=== PATIENT | female | born 1930 | race Caucasian/White ===

== ENCOUNTER 2018-12-19 12:53 | Inpatient (IN) | payer BC, OTHER ==
--- NOTE | 2018-12-19 13:34 | PDOC ---
History of Present Illness - General Chief Complaint: Altered Mental Status Stated Complaint: Altered Mental Status Time Seen by Provider: 12/19/18 13:34 Past History - Past Medical History Allergies/Adverse Reactions: Allergies Allergy/AdvReac Type Severity Reaction Status Date / Time No Known Allergies Allergy Verified 05/23/11 08:24 Home Medications: Ambulatory Orders Aspirin [Aspirin EC] 81 mg PO DAILY #0 tab.chew 05/25/11 Atorvastatin Ca [Lipitor] 20 mg PO HS #0 tablet 05/25/11 Clopidogrel Bisulfate [Plavix -] 75 mg PO DAILY #0 tablet 05/25/11 Valsartan [Diovan] 320 mg PO DAILY #0 tablet 05/25/11 Anemia: No Asthma: No Cancer: No Cardiac Disorders: No CVA: No COPD: No CHF: No Dementia: No Diabetes: No GI Disorders: No Disorders: No HTN: Yes Hypercholesterolemia: No Liver Disease: No Seizures: No Thyroid Disease: No - Surgical History Abdominal Surgery: No Appendectomy: Yes Cardiac Surgery: Yes (rui) Cholecystectomy: No Lung Surgery: No Neurologic Surgery: No Orthopedic Surgery: Yes - Psycho Social/Smoking Cessation Hx Smoking History: Never smoked Have you smoked in the past 12 months: No Information on smoking cessation initiated: No Hx Alcohol Use: No Drug/Substance Use Hx: No Substance Use Type: None Hx Substance Use Treatment: No *Physical Exam - Vital Signs Last Vital Signs Temp Pulse Resp BP Pulse Ox 99.4 F 62 18 180/81 H 100 12/19/18 13:28 12/19/18 12:57 12/19/18 12:57 12/19/18 12:57 12/19/18 12:57 ED Treatment Course - LABORATORY CBC & Chemistry Diagram: 12/19/18 13:40 12/19/18 13:40 Medical Decision Making - Medical Decision Making HPI: 88yo F with PMH of HTN, HLD presenting with chills, cough, and lethargy. Patient 's son is at the bedside providing collateral history. He states she saw her primary care physician about one week ago and was started on a new medication last week and took the medication for about two days. Shortly after starting the medication (olmesartan), she started feeling poorly. The patient saw her primary care physician again on Saturday. She has had poor po intake since Saturday and has been sleeping more than usual. Her son stopped the new medication. Patient has had cough productive of unknown color phlegm. No urinary symptoms. Denies sick contacts or recent travel. Per the son, patient appears to be more confused compared to her baseline. Denies fever, but reports chills. PCP: Dr. Brian Gtz ROS: Constitutional: no fever, +chills HEENT: no throat pain, no dysphagia Cardiovascular: no chest pain, no palpitations Respiratory: +cough, no shortness of breath Gastrointestinal: no abdominal pain, +constipation Genitourinary: no dysuria, no hematuria Musculoskeletal: no myalgia, no arthralgia Skin: no rash, no itching Neurologic: no headache, +weakness PE: General: Awake, alert, and oriented x 2 (cannot name month/year), in no acute distress Head: No signs of trauma Eyes: EOMI, sclera anicteric ENT: Moist mucus membranes Neck: Normal ROM, supple Lungs: Lungs clear, Normal breath sounds Cardio: Regular rhythm, S1 and S2 present Abdomen: Soft, nontender Extremities: Normal range of motion, Distal pulses present SKIN: Warm, Dry, normal turgor Neurologic: Cranial nerves II through XII intact. Normal speech, sensation, strength. Deferred gait exam. ED Course/MDM: DDX including but not limited to hypovolemia, UTI, PNA, bronchitis, ACS, medication adverse effect Labs, EKG, CXR Vitals significant for hypertension; patient did not take her morning BP meds EKG: rate 64, QTc 468, NSR, new RBBB/ twi still present in V1, new twi in V2 when compared to previous EKG 05/14/11 12/19/18 13:34 Call to patient's [facility]: 12/05 Olmesartan (Benicar) 40-25 daily metoprolol ER 25mg daily norvasc 5mg daily 08/27 Losartan-HCTZ (Hizar) 100-25mg daily Ordered home dose of Norvasc 12/19/18 14:04 CBC WBC 5.7 K/mm3 (4.0-10.0) 12/19/18 13:40 RBC 4.25 M/mm3 (3.60-5.2) 12/19/18 13:40 Hgb 12.2 GM/dL (10.7-15.3) 12/19/18 13:40 Hct 36.6 % (32.4-45.2) 12/19/18 13:40 MCV 86.0 fl (80-96) 12/19/18 13:40 MCH 28.6 pg (25.7-33.7) 12/19/18 13:40 MCHC 33.2 g/dl (32.0-36.0) 12/19/18 13:40 RDW 15.6 % (11.6-15.6) D 12/19/18 13:40 Plt Count 145 K/MM3 (134-434) D 12/19/18 13:40 MPV 11.1 fl (7.5-11.1) 12/19/18 13:40 Absolute Neuts (auto) 3.3 K/mm3 (1.5-8.0) 12/19/18 13:40 Neutrophils % 57.3 % (42.8-82.8) 12/19/18 13:40 Lymphocytes % 34.5 % (8-40) 12/19/18 13:40 Monocytes % 7.4 % (3.8-10.2) 12/19/18 13:40 Eosinophils % 0.3 % (0-4.5) D 12/19/18 13:40 Basophils % 0.5 % (0-2.0) 12/19/18 13:40 Nucleated RBC % 0 % (0-0) 12/19/18 13:40 No leukocytosis CMP Sodium 141 mmol/L (136-145) 12/19/18 13:40 Potassium 3.1 mmol/L (3.5-5.1) L 12/19/18 13:40 Chloride 105 mmol/L (98-107) 12/19/18 13:40 Carbon Dioxide 28 mmol/L (21-32) 12/19/18 13:40 Anion Gap 9 MMOL/L (8-16) 12/19/18 13:40 BUN 14.1 mg/dL (7-18) 12/19/18 13:40 Creatinine 0.9 mg/dL (0.55-1.3) 12/19/18 13:40 Est GFR (CKD-EPI)AfAm 66.63 12/19/18 13:40 Est GFR (CKD-EPI)NonAf 57.49 12/19/18 13:40 Random Glucose 121 mg/dL (74-106) H 12/19/18 13:40 Lactic Acid 1.9 mmol/L (0.4-2.0) 12/19/18 13:34 Calcium 8.9 mg/dL (8.5-10.1) 12/19/18 13:40 Total Bilirubin 0.8 mg/dL (0.2-1) 12/19/18 13:40 AST 22 U/L (15-37) 12/19/18 13:40 ALT 24 U/L (13-61) 12/19/18 13:40 Alkaline Phosphatase 134 U/L (45-117) H 12/19/18 13:40 Creatine Kinase 30 U/L (26-192) 12/19/18 13:40 CK-MB (CK-2) < 1.0 ng/mL (0.5-3.6) 12/19/18 13:40 Troponin I < 0.02 ng/ml (0.00-0.05) 12/19/18 13:40 Total Protein 7.5 g/dl (6.4-8.2) 12/19/18 13:40 Albumin 3.7 g/dl (3.4-5.0) 12/19/18 13:40 K is low, will replete normal Cr Lactate normal No transaminitis Tpn undetectable 12/19/18 15:30 CXR as read by radiology: "Single view AP portable chest Comparison 05/14/2011 Evaluation for sepsis Trachea midline with upper normal heart size. No mediastinal widening Patchy infiltrate suspected subpleural region lingula, findings not seen prior imaging 2011. No edema or congestive change in the lungs , no pleural effusion. No adenopathy or cavity. Impression: Possible patchy infiltrate lingula segment, clinical correlation. " 12/19/18 15:34 Azithromycin, Ceftriaxone ordered CURB-65 is 2 due to age and confusion Plan for admission 12/19/18 16:[address] Duran, 12/19/18 16:[address] Duran who accepted patient for admission under herself 12/19/18 16:59 Patient's son, Reynold, can be reached at [phone] 12/19/18 17:05 Discharge - Discharge Information Problems reviewed: Yes Clinical Impression/Diagnosis: Pneumonia Qualifiers: Pneumonia type: due to unspecified organism Laterality: unspecified laterality Lung location: unspecified part of lung Qualified Code(s): J18.9 - Pneumonia, unspecified organism Condition: Guarded - Admission Yes - Follow up/Referral Referrals: Brian Gtz MD [Primary Care Provider] - - Patient Discharge Instructions - Post Discharge Activity
[2018-12-19 13:58] LABS: BASO % 0.5 % (0-2.0); EOS % 0.3 % (0-4.5); HEMATOCRIT 36.6 % (32.4-45.2); HEMOGLOBIN 12.2 GM/dL (10.7-15.3); LYMPH % 34.5 % (8-40); MCH 28.6 pg (25.7-33.7); MCHC 33.2 g/dl (32.0-36.0); MEAN PLT VOLUME 11.1 fl (7.5-11.1); MONO % 7.4 % (3.8-10.2); NEUT % 57.3 % (42.8-82.8); PLATELET COUNT 145 K/MM3 (134-434); RBC 4.25 M/mm3 (3.60-5.2); RDW 15.6 % (11.6-15.6); WHITE BLOOD COUNT 5.7 K/mm3 (4.0-10.0)
[2018-12-19 14:02] LABS: VENOUS PC02 39.5 mmHg (38-52); VENOUS PH 7.47 (7.31-7.41); VENOUS PO2 < 49 mmHg (28-48)
[2018-12-19] MEDS ORDERED: amLODIPine BESYLATE 5 MG TABLET (FP) PO ONE (14:09)
--- NOTE | 2018-12-19 14:14 | PDOC ---
Attending Attestation - Resident Resident Name: AdrianneLacey - ED Attending Attestation I have performed the following: I have examined & evaluated the patient, The case was reviewed & discussed with the resident, I agree w/resident's findings & plan, Exceptions are as noted - HPI HPI: 12/19/18 16:08 Ms. Alvarez is an 88 yo F with PMH of HTN, HLD presenting to the ER with her son due to chills, cough, and lethargy. Pt has had no fevers or chill but has had poor po intake for the past 4 days (she is eating a few slices of toast each day) No diarrhea No dysuria Pt does have a cough with yellow sputum No rash No recent travel No ill contacts NO headache Patient appears to be more confused compared to her baseline. PCP: Dr. Brian Gtz - Physicial Exam PE: 12/19/18 14:14 GENERAL: The patient is in no acute distress. ENT: Ears normal, nares patent, oropharynx clear without exudates. Moist mucous membranes. NECK: Normal range of motion, supple LUNGS: Breath sounds equal, clear to auscultation bilaterally. No wheezes, and no crackles. HEART:Regular rate and rhythm, normal S1 and S2 without murmur, rub or gallop. ABDOMEN: Soft, nontender, normoactive bowel sounds. EXTREMITIES: Normal range of motion, no edema. NEUROLOGICAL: Cranial nerves II through XII grossly intact. Normal speech. No focal neurological deficits. SKIN: Warm, Dry, normal turgor, no rashes or lesions noted. - Medical Decision Making 12/19/18 14:14 EKG : NSR rate of 64 bpm , axis nml, intervals abn - pr: 168ms, QRS:134ms, QTc: 468ms, no st elevation or depression 12/19/18 16:16 88 yo F with a complaint of weakness and altered mentation No fevers (+) cough 12/19/18 16:16 Laboratory Tests 12/19/18 12/19/18 12/19/18 13:40 13:40 13:40 WBC 5.7 Hgb 12.2 Hct 36.6 Plt Count 145 D INR BUN 14.1 Creatinine 0.9 Alkaline Phosphatase 134 H Creatine Kinase 30 CK-MB (CK-2) < 1.0 Troponin I < 0.02 Urine Blood Urine Nitrite Ur Leukocyte Esterase 10/18/19 10/18/19 13:40 14:13 WBC Hgb Hct Plt Count INR 1.10 H BUN Creatinine Alkaline Phosphatase Creatine Kinase CK-MB (CK-2) Troponin I Urine Blood Negative Urine Nitrite Negative Ur Leukocyte Esterase 2+ H CXR with lingular infiltrate Will plan to admit Clinical impression: pneumonia, initial presentation Hypokalemia, initial presentation 12/19/18 16:17
[2018-12-19 14:26] LABS: INR 1.1 (0.83-1.09)
[2018-12-19 14:29] LABS: ACTIVATED PTT 25.1 SECONDS (25.2-36.5)
[2018-12-19] MEDS ORDERED: amLODIPine BESYLATE 5 MG TABLET (FP) ONE (14:33)
[2018-12-19 14:35] LABS: PH,URINE 6.5 (5.0-8.0); URINE APPEARANCE CLOUDY; URINE BILIRUBIN NEGATIVE (NEGATIVE); URINE COLOR YELLOW; URINE GLUCOSE (UA) NEGATIVE (NEGATIVE); URINE KETONE NEGATIVE (NEGATIVE); URINE LEUK ESTERASE 2+ (NEGATIVE); URINE NITRITE NEGATIVE (NEGATIVE); URINE PROTEIN NEGATIVE (NEGATIVE); URINE UROBILINOGEN 0.2 mg/dL (0.2-1.0)
[2018-12-19 14:41] LABS: ALBUMIN 3.7 g/dl (3.4-5.0); ALK PHOS 134 U/L (45-117); ANION GAP 9 MMOL/L (8-16); BILIRUBIN,TOTAL 0.8 mg/dL (0.2-1); BLOOD UREA NITROGEN 14.1 mg/dL (7-18); CALCIUM 8.9 mg/dL (8.5-10.1); CHLORIDE 105 mmol/L (98-107); CO2 28 mmol/L (21-32); CREATININE 0.9 mg/dL (0.55-1.3); GLUCOSE,RANDOM 121 mg/dL (74-106); POTASSIUM 3.1 mmol/L (3.5-5.1); SGOT/AST 22 U/L (15-37); SGPT/ALT 24 U/L (13-61); SODIUM 141 mmol/L (136-145); TOT PROT 7.5 g/dl (6.4-8.2)
[2018-12-19] MEDS ORDERED: POTASSIUM CHLORIDE TABS 20 MEQ TABLET.ER (FP) PO ONE (15:33)
[2018-12-19] MEDS ORDERED: AZITHROMYCIN IVPB 500 MG in DEXTROSE 5%-WATER - 250 ML IVPB ONE (15:54)
[2018-12-19] MEDS ORDERED: CEFTRIAXONE 1,000 MG in DEXTROSE 5%-WATER - 50 ML IVPB ONE (15:54)
[2018-12-19] MEDS ORDERED: POTASSIUM CHLORIDE ORAL LIQUID 20 MEQ/15 ML ONE (16:12)
[2018-12-19] MEDS ORDERED: AZITHROMYCIN IVPB 500 MG/250 ML BAG IVPB ONE (16:12)
[2018-12-19] MEDS ORDERED: CEFTRIAXONE 1 GM/50 ML BAG ONE (16:18)
--- NOTE | 2018-12-19 22:16 | EKG ---
Test Reason : Blood Pressure : / mmHG Vent. Rate : 064 BPM Atrial Rate : 064 BPM P-R Int : 168 ms QRS Dur : 134 ms QT Int : 454 ms P-R-T Axes : 049 000 036 degrees QTc Int : 468 ms POOR DATA QUALITY, INTERPRETATION MAY BE ADVERSELY AFFECTED NORMAL SINUS RHYTHM RIGHT BUNDLE BRANCH BLOCK LATERAL INFARCT (CITED ON OR BEFORE 14-MAY-2011) ABNORMAL ECG WHEN COMPARED WITH ECG OF 14-MAY-2011 10:21, RIGHT BUNDLE BRANCH BLOCK IS NOW PRESENT Confirmed by MD NINA, MERLIN ([id number]) on 12/19/2018 10:16:20 PM Referred By: Confirmed By:MERLIN WOOD MD
[2018-12-19 22:27] VITALS: BMI 24.5
[2018-12-20] MEDS ORDERED: ALBUTEROL SO4 2.5/IPRATROPIUM 0.5 INH SOL 3 ML VIAL.NEB. NEB PRN (02:28)
[2018-12-20 08:38] LABS: EOS % 1.9 % (0-4.5); HEMATOCRIT 36.1 % (32.4-45.2); HEMOGLOBIN 11.9 GM/dL (10.7-15.3); LYMPH % 42.9 % (8-40); MCH 28.4 pg (25.7-33.7); MEAN CELL VOLUME 86.1 fl (80-96); MEAN PLT VOLUME 11.1 fl (7.5-11.1); MONO % 9.9 % (3.8-10.2); NEUT % 44.3 % (42.8-82.8); PLATELET COUNT 137 K/MM3 (134-434); RDW 15.8 % (11.6-15.6); WHITE BLOOD COUNT 4.5 K/mm3 (4.0-10.0)
[2018-12-20 09:11] LABS: ALBUMIN 3.4 g/dl (3.4-5.0); ALK PHOS 130 U/L (45-117); ANION GAP 9 MMOL/L (8-16); BILIRUBIN,TOTAL 0.6 mg/dL (0.2-1); BLOOD UREA NITROGEN 10.1 mg/dL (7-18); CHLORIDE 105 mmol/L (98-107); CO2 29 mmol/L (21-32); CREATININE 0.7 mg/dL (0.55-1.3); GLUCOSE,RANDOM 98 mg/dL (74-106); POTASSIUM 3.3 mmol/L (3.5-5.1); SGOT/AST 20 U/L (15-37); SGPT/ALT 24 U/L (13-61); SODIUM 142 mmol/L (136-145); TOT PROT 6.9 g/dl (6.4-8.2)
[2018-12-20] MEDS ORDERED: DEXTROSE 5%-WATER - 50 ML IVPB ONE (09:45)
[2018-12-20] MEDS ORDERED: cefTRIAXone SODIUM 1 GM VIAL ONE (09:45)
[2018-12-20] MEDS: HEPARIN NA (PORCINE) 5,000 UNITS/ML 1ML VIAL SQ SCH ×2 (10:57→22:20)
[2018-12-20] MEDS: AZITHROMYCIN IVPB 250 MG in DEXTROSE 5%-WATER - 250 ML IVPB SCH (10:57)
[2018-12-20] MEDS: CEFTRIAXONE 1 GM in DEXTROSE 5%-WATER - 50 ML IVPB SCH (10:57)
--- NOTE | 2018-12-20 12:56 | PN ---
Progress Note (short form) - Note Progress Note: PULMONARY CONSULTATION DICTATED 12/20/18 IMP ALTERED MENTAL STATUS COUGH/CONGESTION ? PNEUMONIA HTN HLD PLAN ABX O2 NEEDED CHEST CT CULTURES DR DELUCA Problem List - Problems (1) Pneumonia Code(s): J18.9 - PNEUMONIA, UNSPECIFIED ORGANISM Qualifiers: Pneumonia type: due to unspecified organism Laterality: unspecified laterality Lung location: unspecified part of lung Qualified Code(s): J18.9 - Pneumonia, unspecified organism (2) Altered mental status Code(s): R41.82 - ALTERED MENTAL STATUS, UNSPECIFIED (3) HTN (hypertension) Code(s): I10 - ESSENTIAL (PRIMARY) HYPERTENSION
--- NOTE | 2018-12-20 13:37 | CONS ---
DATE OF CONSULTATION: 12/20/2018 PULMONARY CONSULTATION REFERRING PHYSICIAN: Lacey Duran MD HISTORY OF PRESENT ILLNESS: Patient is an 88-year-old female, past medical history of hypertension, hyperlipidemia, nonsmoker, admitted to [facility] with chills, cough and lethargy. The patient apparently for the past week or so was started on a new medication. Apparently she took the medication for 2 days and shortly after starting the medication, olmesartan, she started feeling weak. She went to her PMD on Saturday prior to this admission with the above complaints, had decreased p.o. intake and sleeping more than usual. Son stopped the medication. The patient also noted to have a cough productive of sputum, unknown color. Had chills but no fevers or hemoptysis. She presented to the emergency room with the above. In the ER she was noted to be awake, alert and mildly confused. She had a chest x-ray performed which revealed possible lingular pneumonia. She was admitted. She was started on antibiotic therapy. Patient is a nonsmoker. She denies any history of occupational exposure to chemicals or fumes. There is no history of COPD or asthma in the past. REVIEW OF SYSTEMS: Positive for cough. No shortness of breath. No hemoptysis. No fever. No chills. No abdominal pain. CURRENT MEDICATIONS: Include Plavix, ceftriaxone, heparin subcutaneous and DuoNeb. PHYSICAL EXAMINATION: General: Patient is an elderly white female, awake, alert, in no acute distress. Vital Signs: She is afebrile, blood pressure 153/96, respiratory rate is 20, O2 saturation 100% on 2 L, nasal cannula. HEENT: Normocephalic, atraumatic. Neck: Supple. Heart: Irregular with S1, S2. Chest: A few crackles at the left base. Abdomen: Soft. Bowel sounds are positive. Extremities: No cyanosis or edema. LABORATORIES: INR is 1.10. WBC is 4.5, hemoglobin 11.9, hematocrit 36.1 with a platelet count of 137,000. Venous blood gas: 7.47, PCO2 of 39, PO2 of less than 49, bicarbonate 28 and a saturation of 67. BUN 10, creatinine 0.7. Chest x-ray: Possible patchy infiltrate in the lingular segment. IMPRESSION: 1. Altered mental status, likely secondary to infectious process, currently improving. 2. Cough, chest congestion, rule out pneumonia. 3. Hypertension. 4. Hyperlipidemia. PLAN: Antibiotics. Supplemental O2. CT scan of the chest. Obtain cultures. DWIGHT DELUCA M.D. [id number] MTDD
--- NOTE | 2018-12-20 13:37 | HP ---
Admitting History and Physical - Admission History of Present Illness: Pt is a 88 y/o female with PMH of HTN, and HLD. Pt presented to the ER with chills, cough, and lethargy. Patient's son was at the bedside providing history. He states she saw her primary care physician about one week ago and was started on a new medication last week and took the medication for about two days. Shortly after starting the medication (olmesartan) she started feeling poorly. The patient saw her primary care physician again on Saturday. She has had poor po intake since Saturday and has been sleeping more than usual. Her son stopped the new medication. Patient has had cough productive of unknown color phlegm. - Past Medical History Cardiovascular: Yes: HTN, Hyperlipdemia - Smoking History Smoking history: Never smoked Have you smoked in the past 12 months: No - Alcohol/Substance Use Hx Alcohol Use: No Home Medications - Allergies Allergies/Adverse Reactions: Allergies Allergy/AdvReac Type Severity Reaction Status Date / Time No Known Allergies Allergy Verified 05/23/11 08:24 - Home Medications Home Medications: Ambulatory Orders Amlodipine Besylate 5 mg PO DAILY 12/20/18 Metoprolol Craven/Hydrochlorothiaz [Metoprolol ER-Hctz 25-12.5 mg] 1 each PO DAILY 12/20/18 Olmesartan/Hydrochlorothiazide [Benicar Hct 40-25 mg Tablet] 1 each PO DAILY Family Medical History Family History: Unable to Obtain Review of Systems Unable to obtain ROS, reason: Confusion - Review of Systems Constitutional: reports: Weakness Eyes: reports: No Symptoms HENT: reports: No Symptoms Neck: reports: No Symptoms Cardiovascular: reports: No Symptoms Respiratory: reports: Cough Gastrointestinal: reports: No Symptoms Genitourinary: reports: No Symptoms Physical Examination Vital Signs: Vital Signs Temperature 97.5 F L 12/20/18 06:32 Pulse Rate 76 12/20/18 06:32 Respiratory Rate 20 12/20/18 06:32 Blood Pressure 153/96 12/20/18 06:32 O2 Sat by Pulse Oximetry (%) 100 12/19/18 21:00 Eyes: Yes: WNL HENT: Yes: WNL Neck: Yes: WNL, Supple Cardiovascular: Yes: WNL, Regular Rate and Rhythm Respiratory: Yes: Diminished Gastrointestinal: Yes: WNL, Normal Bowel Sounds, Soft Extremities: Yes: WNL Edema: No ...Motor Strength: WNL Labs: CBC, BMP 12/20/18 07:15 12/20/18 07:15 Problem List - Problems (1) Altered mental status Assessment/Plan: ? Due to pneumonia Cont iv Ceftriaxone/zithro Cont nebulizers Check CT scan chest Pulmonary consult Code(s): R41.82 - ALTERED MENTAL STATUS, UNSPECIFIED (2) HTN (hypertension) Assessment/Plan: BP stable Cont norvasc/toprol/hctz Code(s): I10 - ESSENTIAL (PRIMARY) HYPERTENSION (3) HLD (hyperlipidemia) Code(s): E78.5 - HYPERLIPIDEMIA, UNSPECIFIED
[2018-12-21] MEDS ORDERED: amLODIPine BESYLATE 5 MG TABLET (FP) PO ONE (06:45)
[2018-12-21] MEDS ORDERED: metoPROLOL SUCCINATE 25 MG TAB.SR.24H (FP) PO ONE (06:45)
[2018-12-21] MEDS ORDERED: HYDROCHLOROTHIAZIDE 12.5 MG CAPSULE (FP) PO ONE (06:45)
[2018-12-21] MEDS ORDERED: cefTRIAXone SODIUM 1 GM VIAL ONE (11:10)
[2018-12-21] MEDS ORDERED: DEXTROSE 5%-WATER - 50 ML IVPB ONE (11:10)
[2018-12-21] MEDS ORDERED: PT OWN MED DRAWER 7, Y5N ONE (11:10)
[2018-12-21] MEDS: HEPARIN NA (PORCINE) 5,000 UNITS/ML 1ML VIAL SQ SCH ×2 (11:12→23:22)
[2018-12-21] MEDS: CEFTRIAXONE 1 GM in DEXTROSE 5%-WATER - 50 ML IVPB SCH (11:12)
[2018-12-21] MEDS: AZITHROMYCIN IVPB 250 MG in DEXTROSE 5%-WATER - 250 ML IVPB SCH (12:01)
--- NOTE | 2018-12-21 12:08 | PN ---
Progress Note, Physician History of Present Illness: PULMONARY ALERT,OOB-CHAIR,-SOB ,-CONGESTION. - Current Medication List Current Medications: Active Medications Albuterol/Ipratropium (Duoneb -) 1 amp NEB Q6H PRN PRN Reason: SHORTNESS OF BREATH Amlodipine Besylate (Norvasc -) 5 mg PO DAILY [facility] Heparin Sodium (Porcine) (Heparin -) 5,000 unit SQ BID [facility] Last Admin: 12/21/18 11:12 Dose: 5,000 unit Hydrochlorothiazide (Hctz -) 25 mg PO DAILY [facility] Azithromycin 250 mg/ Dextrose 250 mls @ 250 mls/hr IVPB DAILY [facility] Last Admin: 12/20/18 10:57 Dose: 250 mls/hr Ceftriaxone Sodium 1 gm/ (Dextrose) 50 mls @ 100 mls/hr IVPB DAILY [facility]; Protocol Last Admin: 12/21/18 11:12 Dose: 100 mls/hr Metoprolol Succinate (Toprol Xl -) 25 mg PO DAILY [facility] - Objective Vital Signs: Vital Signs Temperature 97.3 F L 12/21/18 10:55 Pulse Rate 61 12/21/18 10:55 Respiratory Rate 20 12/21/18 10:55 Blood Pressure 134/71 12/21/18 10:55 O2 Sat by Pulse Oximetry (%) 100 12/20/18 21:00 Constitutional: Yes: Well Nourished, Calm Eyes: Yes: WNL HENT: Yes: WNL Neck: Yes: WNL Cardiovascular: Yes: Regular Rate and Rhythm, S1, S2 Respiratory: Yes: Diminished Gastrointestinal: Yes: Normal Bowel Sounds, Soft Extremities: Yes: WNL Edema: No Labs: CBC, BMP 12/20/18 07:15 12/20/18 07:15 INR, PTT INR 1.10 (0.83-1.09) H 12/19/18 13:40 - ....Imaging Cat Scan: Report Reviewed, Image Reviewed (SMALL DEEPTHI GROUND GLASS OPACITIES LOWER LOBES) Problem List - Problems (1) Pneumonia Code(s): J18.9 - PNEUMONIA, UNSPECIFIED ORGANISM Qualifiers: Pneumonia type: due to unspecified organism Laterality: unspecified laterality Lung location: unspecified part of lung Qualified Code(s): J18.9 - Pneumonia, unspecified organism (2) Altered mental status Code(s): R41.82 - ALTERED MENTAL STATUS, UNSPECIFIED (3) HTN (hypertension) Code(s): I10 - ESSENTIAL (PRIMARY) HYPERTENSION Assessment/Plan IMP ALTERED MENTAL STATUS COUGH/CONGESTION ? PNEUMONIA HTN HLD PLAN ABX O2 NEEDED DR DELUCA Problem List - Problems (1) Pneumonia Code(s): J18.9 - PNEUMONIA, UNSPECIFIED ORGANISM Qualifiers: Pneumonia type: due to unspecified organism Laterality: unspecified laterality Lung location: unspecified part of lung Qualified Code(s): J18.9 - Pneumonia, unspecified organism (2) Altered mental status Code(s): R41.82 - ALTERED MENTAL STATUS, UNSPECIFIED (3) HTN (hypertension) Code(s): I10 - ESSENTIAL (PRIMARY) HYPERTENSION
[2018-12-21] MEDS: metoPROLOL SUCCINATE 25 MG TAB.SR.24H (FP) PO SCH (13:29)
[2018-12-21] MEDS: amLODIPine BESYLATE 5 MG TABLET (FP) PO SCH (13:29)
[2018-12-21] MEDS: HYDROCHLOROTHIAZIDE 25 MG TABLET (FP) PO SCH (13:29)
--- NOTE | 2018-12-21 21:43 | PN ---
Progress Note, Physician History of Present Illness: No new complaints - Current Medication List Current Medications: Active Medications Albuterol/Ipratropium (Duoneb -) 1 amp NEB Q6H PRN PRN Reason: SHORTNESS OF BREATH Amlodipine Besylate (Norvasc -) 5 mg PO DAILY [facility] Last Admin: 12/21/18 13:29 Dose: Not Given Heparin Sodium (Porcine) (Heparin -) 5,000 unit SQ BID [facility] Last Admin: 12/21/18 11:12 Dose: 5,000 unit Hydrochlorothiazide (Hctz -) 25 mg PO DAILY [facility] Last Admin: 12/21/18 13:29 Dose: Not Given Azithromycin 250 mg/ Dextrose 250 mls @ 250 mls/hr IVPB DAILY [facility] Last Admin: 12/21/18 12:01 Dose: 250 mls/hr Ceftriaxone Sodium 1 gm/ (Dextrose) 50 mls @ 100 mls/hr IVPB DAILY [facility]; Protocol Last Admin: 12/21/18 11:12 Dose: 100 mls/hr Metoprolol Succinate (Toprol Xl -) 25 mg PO DAILY [facility] Last Admin: 12/21/18 13:29 Dose: Not Given - Objective Vital Signs: Vital Signs Temperature 97.8 F 12/21/18 18:00 Pulse Rate 62 12/21/18 18:00 Respiratory Rate 18 12/21/18 18:00 Blood Pressure 122/63 12/21/18 18:00 O2 Sat by Pulse Oximetry (%) 97 12/21/18 11:00 Neck: Yes: WNL, Supple Cardiovascular: Yes: WNL, Regular Rate and Rhythm Respiratory: Yes: Diminished Gastrointestinal: Yes: WNL, Normal Bowel Sounds, Soft Edema: No Labs: CBC, BMP 12/20/18 07:15 12/20/18 07:15 INR, PTT INR 1.10 (0.83-1.09) H 12/19/18 13:40 Problem List - Problems (1) Altered mental status Assessment/Plan: ? Due to pneumonia Cont iv Ceftriaxone/zithro Cont nebulizers CT scan chest showed b/l groundglass opacities Pulmonary consult Code(s): R41.82 - ALTERED MENTAL STATUS, UNSPECIFIED (2) HTN (hypertension) Assessment/Plan: BP stable Cont norvasc/toprol/hctz Code(s): I10 - ESSENTIAL (PRIMARY) HYPERTENSION (3) HLD (hyperlipidemia) Code(s): E78.5 - HYPERLIPIDEMIA, UNSPECIFIED
[2018-12-22 08:42] LABS: BASO % 1.1 % (0-2.0); EOS % 3.7 % (0-4.5); HEMOGLOBIN 11.9 GM/dL (10.7-15.3); LYMPH % 44.9 % (8-40); MCH 28.7 pg (25.7-33.7); MCHC 33.1 g/dl (32.0-36.0); MEAN CELL VOLUME 86.8 fl (80-96); MEAN PLT VOLUME 10.9 fl (7.5-11.1); MONO % 9.8 % (3.8-10.2); NEUT % 40.5 % (42.8-82.8); PLATELET COUNT 134 K/MM3 (134-434); RBC 4.15 M/mm3 (3.60-5.2); RDW 15.8 % (11.6-15.6); WHITE BLOOD COUNT 4.5 K/mm3 (4.0-10.0)
[2018-12-22 09:04] LABS: ALBUMIN 3.4 g/dl (3.4-5.0); ALK PHOS 124 U/L (45-117); ANION GAP 9 MMOL/L (8-16); BILIRUBIN,TOTAL 0.4 mg/dL (0.2-1); CALCIUM 9.1 mg/dL (8.5-10.1); CHLORIDE 103 mmol/L (98-107); CO2 29 mmol/L (21-32); CREATININE 0.8 mg/dL (0.55-1.3); GLUCOSE,RANDOM 102 mg/dL (74-106); POTASSIUM 3.8 mmol/L (3.5-5.1); SGOT/AST 15 U/L (15-37); SGPT/ALT 20 U/L (13-61); SODIUM 141 mmol/L (136-145); TOT PROT 6.8 g/dl (6.4-8.2)
[2018-12-22] MEDS ORDERED: DEXTROSE 5%-WATER - 50 ML IVPB ONE (09:44)
[2018-12-22] MEDS ORDERED: cefTRIAXone SODIUM 1 GM VIAL ONE (09:44)
[2018-12-22] MEDS: CEFTRIAXONE 1 GM in DEXTROSE 5%-WATER - 50 ML IVPB SCH (10:56)
[2018-12-22] MEDS: amLODIPine BESYLATE 5 MG TABLET (FP) PO SCH (10:57)
[2018-12-22] MEDS: HYDROCHLOROTHIAZIDE 25 MG TABLET (FP) PO SCH (10:57)
[2018-12-22] MEDS: metoPROLOL SUCCINATE 25 MG TAB.SR.24H (FP) PO SCH (10:57)
[2018-12-22] MEDS: HEPARIN NA (PORCINE) 5,000 UNITS/ML 1ML VIAL SQ SCH (10:57)
[2018-12-22] MEDS: AZITHROMYCIN IVPB 250 MG in DEXTROSE 5%-WATER - 250 ML IVPB SCH (12:09)
--- NOTE | 2018-12-22 12:39 | PN ---
Progress Note (short form) - Note Progress Note: PULMONARY Feels well, back to baseline. No cough, fevers. Vital Signs Period Temp Pulse Resp BP Sys/Escobar Pulse Ox Last 24 Hr 97.8 F-98.5 F 60-63 18-20 115-136/56-71 98 Gen: NAD at rest Heart: RRR Lung: decreased breath sounds at the bases Abd: soft, nontender Ext: no edema CBC, BMP 12/22/18 08:00 12/22/18 08:00 Active Medications Albuterol/Ipratropium (Duoneb -) 1 amp NEB Q6H PRN PRN Reason: SHORTNESS OF BREATH Amlodipine Besylate (Norvasc -) 5 mg PO DAILY [facility] Last Admin: 12/22/18 10:57 Dose: 5 mg Heparin Sodium (Porcine) (Heparin -) 5,000 unit SQ BID [facility] Last Admin: 12/22/18 10:57 Dose: 5,000 unit Hydrochlorothiazide (Hctz -) 25 mg PO DAILY [facility] Last Admin: 12/22/18 10:57 Dose: 25 mg Azithromycin 250 mg/ Dextrose 250 mls @ 250 mls/hr IVPB DAILY [facility] Last Admin: 12/22/18 12:09 Dose: 250 mls/hr Ceftriaxone Sodium 1 gm/ (Dextrose) 50 mls @ 100 mls/hr IVPB DAILY [facility]; Protocol Last Admin: 12/22/18 10:56 Dose: 100 mls/hr Metoprolol Succinate (Toprol Xl -) 25 mg PO DAILY [facility] Last Admin: 12/22/18 10:57 Dose: 25 mg A/P Pneumonia HTN Hyperlipidemia - can change antibiotics to PO and complete 7 day course - DVT prophylaxis - can d/c home from pulmonary standpoint
[2018-12-22 15:13] VITALS: BP 121/63; PULSE 66; TEMP 98.2
== END 2018-12-22 16:59 | disposition home health service (06) | DRG 195 ==
LOC: JER 12:53 → JERBED 16:16 → J5S 19:48
PROVIDERS: ADMIT Internal Medicine; ATTEND Internal Medicine
DX: J18.9 Pneumonia, unspecified organism (principal); E87.6 Hypokalemia; I10 Essential (primary) hypertension; E78.5 Hyperlipidemia, unspecified; I45.10 Unspecified right bundle-branch block
CPT/HCPCS: 36415; 71045-TC-FY; 71250-TC; 80053; 81003; 82550; 82553; 82803; 83036; 83605; 84443; 84484; 85025; 85610; 85730; 87040; 87086; 93005; 93010; 99284-25; J1644

== ENCOUNTER 2019-12-21 00:42 | Inpatient (IN) | payer BC, OTHER ==
[2019-12-21 01:02] VITALS: BMI 24.7
--- NOTE | 2019-12-21 01:12 | PDOC ---
Attending Attestation - Resident Resident Name: Tyler Castrejon - ED Attending Attestation I have performed the following: I have examined & evaluated the patient, The case was reviewed & discussed with the resident, I agree w/resident's findings & plan - HPI HPI: 12/21/19 01:12 PT WAS WANDERING ION SOHAIL AND WENT TO [facility] AND THEY BROUGHT HER HERE FOR EVALUATION. VENKATA STATES THAT SHE HAS DEMNETIA AND WANDERS. - Physicial Exam PE: 12/21/19 06:21 Agree with resident exam. Pt has normal heart and lungs and abd soft NT ND Pt is moving all extremities and able to walk around. She can follow commands. Agree with resident exam - Medical Decision Making 12/26/19 03:48 Pt will be admitted to her PMD service Discharge - Discharge Information Problems reviewed: Yes Clinical Impression/Diagnosis: Altered mental status Qualifiers: Altered mental status type: unspecified Qualified Code(s): R41.82 - Altered mental status, unspecified Condition: Fair Disposition: LONG TERM FACILITY - Follow up/Referral - Patient Discharge Instructions - Post Discharge Activity
--- NOTE | 2019-12-21 01:40 | PDOC ---
History of Present Illness - General Chief Complaint: Altered Mental Status Stated Complaint: ALTERED MENTAL STATUS Time Seen by Provider: 12/21/19 01:10 - History of Present Illness Initial Comments: 12/21/19 02:50 89 yo female with pmh htn, hld, depression and dementia presents to ED for AMS. Pt according to EMS was walking around then knocked on police door and did not know where she was so was brought to the hospital. Pt does not know why she is at hospital and is stating nothing is bothering her. Pt denies fevers, chills, shortness of breath, dysuria, urinary frequncy, n/v/d/c, weakness. According to son, pt has dementia and walks everyday to burial site of or looks for around town. Pt has dementia but has never once walked and gotten lost before. According to , pt is well beyond baseline mental status because pt usually does not get lost like this. Pt says that she was picked up from her house but pt was picked up from police station. Pt usually when asked will tell son if anything is bothering her symptoms hagan. PMH: htn, hld, depression, dementia Meds: amlodipine 5mg QD, Rasuvastatin 10mg QD, Metoprolol 25mg QD, Escitalopram 10 mg QD PSH: denies Allergies: denies Social: denies smoking drugs or alcohol PCP: Dr. Brian Gtz Past History - Medical History Allergies/Adverse Reactions: Allergies Allergy/AdvReac Type Severity Reaction Status Date / Time No Known Allergies Allergy Verified 12/21/19 01:00 Home Medications: Ambulatory Orders Amlodipine Besylate 5 mg PO DAILY 12/20/18 Olmesartan/Hydrochlorothiazide [Benicar Hct 40-25 mg Tablet] 1 each PO DAILY 12/20/18 Cefuroxime Axetil [Ceftin -] 500 mg PO Q12H #14 tablet 12/22/18 Metoprolol Succinate [Toprol XL -] 25 mg PO DAILY tab.sr.24h 12/22/18 Anemia: No Asthma: No Cancer: No Cardiac Disorders: No CVA: No COPD: No CHF: No Dementia: No Diabetes: No GI Disorders: No Disorders: No HTN: Yes Hypercholesterolemia: No Liver Disease: No Seizures: No Thyroid Disease: No - Surgical History Abdominal Surgery: No Appendectomy: Yes Cardiac Surgery: Yes (rui) Cholecystectomy: No Lung Surgery: No Neurologic Surgery: No Orthopedic Surgery: Yes - Psycho-Social/Smoking History Smoking History: Never smoked Have you smoked in the past 12 months: No - Substance Abuse Hx (Audit-C & DAST Scrn) How often the patient has a drink containing alcohol: Never Score: In Men: 4 or > Positive; In Women: 3 or > Positive: 0 Screen Result (Pos requires Nsg. Audit-10AR): Negative In the last yr the pt used illegal drug/Rx for NonMed reason: No Score: Yes response is considered Positive: 0 Screen Result (Positive result requires Nsg. DAST-10): Negative Review of Systems - Review of Systems Comments:: 12/21/19 06:03 GENERAL/CONSTITUTIONAL: No fever or chills. No weakness. HEAD, EYES, EARS, NOSE AND THROAT: No change in vision. No ear pain or discharge. No sore throat. CARDIOVASCULAR: No chest pain or shortness of breath RESPIRATORY: No cough, wheezing, or hemoptysis. GASTROINTESTINAL: No nausea, vomiting, diarrhea or constipation. GENITOURINARY: No dysuria, frequency, or change in urination. MUSCULOSKELETAL: No joint or muscle swelling or pain. No neck or back pain. SKIN: No rash NEUROLOGIC: No headache, vertigo, loss of consciousness, or change in strength/sensation. ALLERGIC/IMMUNOLOGIC: No hives or skin allergy. *Physical Exam - Vital Signs Last Vital Signs Temp Pulse Resp BP Pulse Ox 98.2 F 81 17 162/82 100 12/21/19 00:45 12/21/19 00:45 12/21/19 00:45 12/21/19 00:45 12/21/19 00:45 - Physical Exam 12/21/19 03:30 GENERAL: Awake, alert, and oriented to person and place but not time in no acute distress HEAD: No signs of trauma, normocephalic, atraumatic EYES: EOMI, sclera anicteric, conjunctiva clear ENT: Auricles normal inspection, hearing grossly normal, nares patent, orophar ynx clear without exudates. Moist mucosa NECK: Normal ROM, supple, no lymphadenopathy, JVD, or masses LUNGS: No distress, speaks full sentences, clear to auscultation bilaterally HEART: Regular rate and rhythm, normal S1 and S2, no murmurs, rubs or gallops, peripheral pulses normal and equal bilaterally. ABDOMEN: Soft, nontender, normoactive bowel sounds. No guarding, no rebound. No masses EXTREMITIES : Normal inspection, Normal range of motion, no edema. No clubbing or cyanosis. NEUROLOGICAL: Cranial nerves II through XII intact. Normal speech, normal gait, no focal sensorimotor deficits. Finger to nose intact. SKIN: Warm, Dry, normal turgor, no rashes or lesions noted Heart Score/ECG Review - ECG Impressions Comment:: 12/21/19 03:26 Normal sinus rhythm at 71 bpm Normal axis RBBB No St changes or signs of ischemia ED Treatment Course - LABORATORY CBC & Chemistry Diagram: 12/21/19 02:11 12/21/19 02:11 Medical Decision Making - Medical Decision Making 12/21/19 03:23 89 yo female with pmh htn, hld, depression and dementia presents to ED for AMS. PT has no sxs and does not know why she is here. According to EMS pt was found wandering and was lost. Pt son explains pt way past baseline and would like pt admitted for possible placement into [facility] facility. Will assess for ams with cbc, cmp, ekg, cxr, and UA. 12/21/19 03:[address] Call made out [address] Duran. Answering service picked up and will call back. 12/21/19 06:06 Dr. Duran paged again. Waiting call back Dr. Duran was told about pt ED course and plan. Admitted to Dr. Duran. Discharge - Discharge Information Problems reviewed: Yes Clinical Impression/Diagnosis: Altered mental status Qualifiers: Altered mental status type: unspecified Qualified Code(s): R41.82 - Altered mental status, unspecified Condition: Fair - Admission Yes - Follow up/Referral - Patient Discharge Instructions - Post Discharge Activity
[2019-12-21 02:36] LABS: BASO % 0.7 % (0-2.0); EOS % 0.8 % (0-4.5); HEMATOCRIT 36.9 % (32.4-45.2); HEMOGLOBIN 12.2 GM/dL (10.7-15.3); LYMPH % 29.7 % (8-40); MCH 28.5 pg (25.7-33.7); MEAN CELL VOLUME 86.5 fl (80-96); MEAN PLT VOLUME 10.8 fl (7.5-11.1); MONO % 7.8 % (3.8-10.2); PLATELET COUNT 101 K/MM3 (134-434); RBC 4.26 M/mm3 (3.60-5.2); RDW 16.6 % (11.6-15.6); WHITE BLOOD COUNT 5.3 K/mm3 (4.0-10.0)
[2019-12-21 02:50] LABS: POTASSIUM 4.1 mmol/L (3.5-5.1)
[2019-12-21 02:53] LABS: ALBUMIN 3.9 g/dl (3.4-5.0); BLOOD UREA NITROGEN 16.2 mg/dL (7-18)
[2019-12-21 02:56] LABS: CREATININE 0.6 mg/dL (0.55-1.3)
[2019-12-21 02:58] LABS: BILIRUBIN,TOTAL 0.4 mg/dL (0.2-1); TOT PROT 7.7 g/dl (6.4-8.2)
[2019-12-21 04:14] LABS: URINE APPEARANCE CLEAR; URINE BILIRUBIN NEGATIVE (NEGATIVE); URINE COLOR YELLOW; URINE GLUCOSE (UA) NEGATIVE (NEGATIVE); URINE KETONE NEGATIVE (NEGATIVE); URINE LEUK ESTERASE NEGATIVE (NEGATIVE); URINE NITRITE NEGATIVE (NEGATIVE); URINE PROTEIN TRACE (NEGATIVE)
[2019-12-21] MEDS ORDERED: metoPROLOL SUCCINATE 25 MG TAB.SR.24H (FP) ONE (15:50)
--- NOTE | 2019-12-21 16:08 | EKG ---
Test Reason : Blood Pressure : / mmHG Vent. Rate : 071 BPM Atrial Rate : 071 BPM P-R Int : 214 ms QRS Dur : 132 ms QT Int : 430 ms P-R-T Axes : 077 015 037 degrees QTc Int : 467 ms SINUS RHYTHM WITH 1ST DEGREE A-V BLOCK RIGHT BUNDLE BRANCH BLOCK POSSIBLE LATERAL INFARCT (CITED ON OR BEFORE 14-MAY-2011) ABNORMAL ECG WHEN COMPARED WITH ECG OF 19-DEC-2018 13:16, CA INTERVAL HAS INCREASED Confirmed by PRECIOUS REED MD ([id number]) on 12/21/2019 4:07:53 PM Referred By: Confirmed By:PRECIOUS REED MD
[2019-12-21] MEDS: metoPROLOL SUCCINATE 25 MG TAB.SR.24H (FP) PO SCH (16:30)
[2019-12-21] MEDS: DEXTROSE 5%-0.45% SALINE 1,000 ML IV SCH (17:56)
--- NOTE | 2019-12-21 21:16 | HP ---
Admitting History and Physical - Past Medical History Cardiovascular: Yes: HTN, Hyperlipdemia - Smoking History Smoking history: Never smoked Have you smoked in the past 12 months: No - Alcohol/Substance Use Hx Alcohol Use: No Home Medications - Allergies Allergies/Adverse Reactions: Allergies Allergy/AdvReac Type Severity Reaction Status Date / Time No Known Allergies Allergy Verified 12/21/19 01:00 - Home Medications Home Medications: Ambulatory Orders Amlodipine Besylate 5 mg PO DAILY 12/20/18 Olmesartan/Hydrochlorothiazide [Benicar Hct 40-25 mg Tablet] 1 each PO DAILY 12/20/18 Cefuroxime Axetil [Ceftin -] 500 mg PO Q12H #14 tablet 12/22/18 Metoprolol Succinate [Toprol XL -] 25 mg PO DAILY tab.sr.24h 12/22/18 Physical Examination Vital Signs: Vital Signs Temperature 98.2 F 12/21/19 17:00 Pulse Rate 72 12/21/19 17:00 Respiratory Rate 18 12/21/19 17:00 Blood Pressure 163/78 12/21/19 17:00 O2 Sat by Pulse Oximetry (%) 99 12/21/19 17:00 Labs: CBC, BMP 12/21/19 02:11 12/21/19 02:11
[2019-12-21] MEDS: HEPARIN NA (PORCINE) 5,000 UNITS/ML 1ML VIAL SQ SCH (23:00)
[2019-12-22] MEDS: metoPROLOL SUCCINATE 25 MG TAB.SR.24H (FP) PO SCH (11:32)
[2019-12-22] MEDS: HEPARIN NA (PORCINE) 5,000 UNITS/ML 1ML VIAL SQ SCH ×2 (11:32→21:25)
[2019-12-22] MEDS: amLODIPine BESYLATE 5 MG TABLET (FP) PO SCH (11:32)
[2019-12-22] MEDS ORDERED: FLU VACCINE (FLULAVAL) PF 60 MCG/0.5 ML SYRINGE 2020-2021 IM ONE (14:00)
[2019-12-22] MEDS: DEXTROSE 5%-0.45% SALINE 1,000 ML IV SCH (15:17)
--- NOTE | 2019-12-22 18:09 | PN ---
Progress Note, Physician History of Present Illness: stable - Current Medication List Current Medications: Active Medications Amlodipine Besylate (Norvasc -) 5 mg PO DAILY [facility] Last Admin: 12/22/19 11:32 Dose: 5 mg Documented by: Heparin Sodium (Porcine) (Heparin -) 5,000 unit SQ BID [facility] Last Admin: 12/22/19 11:32 Dose: 5,000 unit Documented by: Dextrose/Sodium Chloride (D5-1/2ns -) 1,000 mls @ 75 mls/hr IV ASDIR [facility] Last Admin: 12/22/19 15:17 Dose: Not Given Documented by: Metoprolol Succinate (Toprol Xl -) 25 mg PO DAILY [facility] Last Admin: 12/22/19 11:32 Dose: 25 mg Documented by: - Objective Vital Signs: Vital Signs Temperature 97.7 F 12/22/19 14:00 Pulse Rate 64 12/22/19 14:00 Respiratory Rate 20 12/22/19 14:00 Blood Pressure 154/86 12/22/19 14:00 O2 Sat by Pulse Oximetry (%) 97 12/22/19 14:00 Constitutional: Yes: No Distress HENT: Yes: Atraumatic Neck: Yes: Supple Cardiovascular: Yes: Regular Rate and Rhythm Respiratory: Yes: CTA Bilaterally Gastrointestinal: Yes: Normal Bowel Sounds Extremities: Yes: WNL Edema: No Neurological: Yes: Alert Labs: CBC, BMP 12/21/19 02:11 12/21/19 02:11 Problem List - Problems (1) Dementia Assessment/Plan: for snf Code(s): F03.90 - UNSPECIFIED DEMENTIA WITHOUT BEHAVIORAL DISTURBANCE (2) HLD (hyperlipidemia) Code(s): E78.5 - HYPERLIPIDEMIA, UNSPECIFIED (3) HTN (hypertension) Assessment/Plan: on meds Code(s): I10 - ESSENTIAL (PRIMARY) HYPERTENSION Assessment/Plan covering for dr ale craft
[2019-12-23] MEDS ORDERED: QUEtiapine FUMARATE 25 MG TABLET PO ONE ×2 (01:00→14:15)
[2019-12-23] MEDS: HEPARIN NA (PORCINE) 5,000 UNITS/ML 1ML VIAL SQ SCH ×2 (09:54→23:02)
[2019-12-23] MEDS: amLODIPine BESYLATE 5 MG TABLET (FP) PO SCH (16:39)
[2019-12-23] MEDS: metoPROLOL SUCCINATE 25 MG TAB.SR.24H (FP) PO SCH (16:39)
[2019-12-23] MEDS: DEXTROSE 5%-0.45% SALINE 1,000 ML IV SCH (18:46)
--- NOTE | 2019-12-23 20:45 | PN ---
Progress Note, Physician History of Present Illness: Pt has not been sleeping and refusing po meds - Current Medication List Current Medications: Active Medications Amlodipine Besylate (Norvasc -) 5 mg PO DAILY [facility] Last Admin: 12/23/19 16:39 Dose: Not Given Documented by: Heparin Sodium (Porcine) (Heparin -) 5,000 unit SQ BID [facility] Last Admin: 12/23/19 09:54 Dose: Not Given Documented by: Dextrose/Sodium Chloride (D5-1/2ns -) 1,000 mls @ 75 mls/hr IV ASDIR [facility] Last Admin: 12/23/19 18:46 Dose: Not Given Documented by: Metoprolol Succinate (Toprol Xl -) 25 mg PO DAILY [facility] Last Admin: 12/23/19 16:39 Dose: Not Given Documented by: - Objective Vital Signs: Vital Signs Temperature 97.9 F 12/23/19 18:00 Pulse Rate 71 12/23/19 18:00 Respiratory Rate 18 12/23/19 18:00 Blood Pressure 139/78 12/23/19 18:00 O2 Sat by Pulse Oximetry (%) 99 12/23/19 18:00 Neck: Yes: WNL, Supple Cardiovascular: Yes: WNL, Regular Rate and Rhythm Respiratory: Yes: WNL, Regular, CTA Bilaterally Gastrointestinal: Yes: WNL, Normal Bowel Sounds, Soft Labs: CBC, BMP 12/21/19 02:11 12/21/19 02:11 Problem List - Problems (1) Dementia Assessment/Plan: Advanced dementia Pt for DC planning to SNF Code(s): F03.90 - UNSPECIFIED DEMENTIA WITHOUT BEHAVIORAL DISTURBANCE (2) HTN (hypertension) Assessment/Plan: BP stable Pt on metoprolol/norvasc Code(s): I10 - ESSENTIAL (PRIMARY) HYPERTENSION (3) HLD (hyperlipidemia) Code(s): E78.5 - HYPERLIPIDEMIA, UNSPECIFIED
[2019-12-24] MEDS: amLODIPine BESYLATE 5 MG TABLET (FP) PO SCH ×2 (06:34→09:24)
[2019-12-24] MEDS: metoPROLOL SUCCINATE 25 MG TAB.SR.24H (FP) PO SCH ×2 (06:34→09:24)
[2019-12-24 08:50] VITALS: BP 124/75; PULSE 68; TEMP 97.8
[2019-12-24] MEDS: HEPARIN NA (PORCINE) 5,000 UNITS/ML 1ML VIAL SQ SCH (09:23)
[2019-12-24] MEDS ORDERED: QUEtiapine FUMARATE 25 MG TABLET PO ONE ×2 (10:45→11:30)
[2019-12-24] MEDS ORDERED: DOCUSATE SODIUM 100 MG CAPSULE (FP) PO ONE (11:30)
== END 2019-12-24 12:56 | DRG 884 ==
LOC: JER 00:42 → JERBED 03:51 → J5S 18:20
PROVIDERS: ADMIT Internal Medicine; ATTEND Internal Medicine
DX: F03.91 Unspecified dementia, unspecified severity, with behavioral disturbance (principal); Z91.83 Wandering in diseases classified elsewhere; I10 Essential (primary) hypertension; E78.5 Hyperlipidemia, unspecified; F32.9 Major depressive disorder, single episode, unspecified
CPT/HCPCS: 36415; 71045-TC-FY; 80053; 81003; 85025; 87086; 93005; 93010; 97116-GP; 97161-GP; 99285-25; C9803; J1644; Q2036; U0003